=== PATIENT | female | born 1960 | race Caucasian/White ===

== ENCOUNTER → 2020-02-15 11:08 | Outpatient (BNVA) | payer MEDICAID, SELFPAY | PROVIDERS: Referring Provider Nurse Practitioner Family; Visit Provider Specialist | DX: G57.32 Lesion of lateral popliteal nerve, left lower limb (principal); M21.372 Foot drop, left foot | CPT/HCPCS: 99204 ==

== ENCOUNTER → 2020-03-01 09:28 | Outpatient (BNVA) | payer BC, SELFPAY | PROVIDERS: Visit Provider Specialist | DX: M21.379 Foot drop, unspecified foot (principal); G57.30 Lesion of lateral popliteal nerve, unspecified lower limb; G62.9 Polyneuropathy, unspecified | CPT/HCPCS: 95909 ==

== ENCOUNTER → 2020-03-23 10:45 | Outpatient (BNVA) | payer BC, SELFPAY | PROVIDERS: Visit Provider Specialist | DX: G58.7 Mononeuritis multiplex (principal); R29.898 Other symptoms and signs involving the musculoskeletal system; G57.30 Lesion of lateral popliteal nerve, unspecified lower limb; G62.9 Polyneuropathy, unspecified; F17.210 Nicotine dependence, cigarettes, uncomplicated | CPT/HCPCS: 99215 ==

== ENCOUNTER 2020-03-23 13:06 | Outpatient (CLI) | payer SELFPAY ==
[2020-03-23 14:32] LABS: Alanine Aminotransferase 18 U/L (0-33); Albumin Level 3.9 g/dL (3.5-5.2); Alkaline Phosphatase 73 IU/L (35-105); Anion Gap 14.1 (5-19); Aspartate Amino Transferase 25 U/L (0-32); Blood Urea Nitrogen 17 mg/dL (6-20); Calcium 9.3 mg/dL (8.5-10.5); Carbon Dioxide 26 mmol/L (22-29); Chloride 99 mmol/L (98-107); Globulin 2.9 g/dL (1.3-4.6); Glomerular Filtration Rate 64.5 mL/min (90-130); Glucose 145 mg/dL (65-115); Osmolality Calculated 279 mOsm/kg (285-295); Potassium 4.1 mmol/L (3.5-5.1); Sodium 135 mmol/L (136-145); Total Bilirubin 1.1 mg/dL (0.15-1.2); Total Protein 6.8 g/dL (6.6-8.7)
[2020-03-23 14:43] LABS: Basophils % 0.6 %; Eosinophils # 0.1 10^3/uL (0.0-0.8); Eosinophils % 0.9 %; Hematocrit 43.9 % (37.0-47.0); Hemoglobin 14.3 g/dL (11.5-15.3); Lymphocytes # 1.4 10^3/uL (0.8-4.8); Lymphocytes % 22.2 %; Mean Corpuscular HGB Conc 32.6 g/dL (30.0-36.0); Mean Corpuscular Hemoglobin 32.8 pg (28.0-34.0); Mean Corpuscular Volume 100.7 fL (81-99); Mean Platelet Volume 9.5 fL (7.4-10.4); Monocytes # 0.3 10^3/uL (0.2-0.9); Monocytes % 4.1 %; Neutrophils # 4.54 10^3/uL (1.8-7.7); Neutrophils % 71.9 %; Nucleated Red Blood Cells % 0 %; Platelet Count 318 10^3/cmm (130-400); Red Blood Count 4.36 10^6/uL (4.1-5.3); Red Cell Distribution Width 15.5 % (12.1-15.1); White Blood Count 6.3 10^3/uL (4.0-10.0)
[2020-03-23 14:48] LABS: Folate Level 8.9 ng/mL (4.8-37.3); Vitamin B12 306 pg/mL (232-1245)
[2020-03-23 15:45] LABS: Erythrocyte Sedimentation Rate 10 mm/hr (0-15)
[2020-03-27 15:37] LABS: Methylmalonic Acid 210 nmol/L (87-318)
== END 2020-03-23 13:07 | disposition home or self-care (01) ==
LOC: LAB 13:10
PROVIDERS: PCP Nurse Practitioner Family; Visit Provider Specialist
DX: R20.0 Anesthesia of skin (principal); R20.2 Paresthesia of skin
CPT/HCPCS: 80053; 82607; 82746; 83921; 84260; 85025; 85651

== ENCOUNTER → 2020-04-12 12:49 | Outpatient (BNVA) | payer BC, SELFPAY | PROVIDERS: PCP Nurse Practitioner Family; Visit Provider Specialist | DX: G56.03 Carpal tunnel syndrome, bilateral upper limbs (principal); G56.23 Lesion of ulnar nerve, bilateral upper limbs; F17.210 Nicotine dependence, cigarettes, uncomplicated | CPT/HCPCS: 95910 ==

== ENCOUNTER 2020-04-12 15:02 | Outpatient (CLI) | payer BC, SELFPAY ==
[2020-04-18 01:26] LABS: Cryoglobulins Qualitative None Detected (None Detected)
== END 2020-04-12 15:03 | disposition home or self-care (01) ==
PROVIDERS: PCP Nurse Practitioner Family; Visit Provider Specialist
DX: R20.0 Anesthesia of skin (principal); R20.2 Paresthesia of skin
CPT/HCPCS: 82595

== ENCOUNTER → 2021-03-08 10:20 | Outpatient (BNVA) | payer SELFPAY | PROVIDERS: PCP Nurse Practitioner Family; Visit Provider Specialist | DX: G56.03 Carpal tunnel syndrome, bilateral upper limbs (principal); G56.23 Lesion of ulnar nerve, bilateral upper limbs; R53.1 Weakness; F17.210 Nicotine dependence, cigarettes, uncomplicated | CPT/HCPCS: 99214 ==

== ENCOUNTER → 2023-07-17 15:52 | Outpatient (BNVA) | payer MEDICARE, SELFPAY | PROVIDERS: PCP Nurse Practitioner Family; Visit Provider Specialist | DX: I65.22 Occlusion and stenosis of left carotid artery (principal); H34.12 Central retinal artery occlusion, left eye; I63.512 Cerebral infarction due to unspecified occlusion or stenosis of left middle cerebral artery | CPT/HCPCS: 99215 ==